=== PATIENT | female | born 1995 | race Caucasian/White ===

== ENCOUNTER 2016-11-11 21:13 | Emergency (ER) | payer OTHER ==
[2016-11-11 21:27] VITALS: TEMP 98.2
[2016-11-11] MEDS ORDERED: ACETAMINOPHEN 325 MG TAB PO ONE (21:58)
[2016-11-11 22:03] LABS: % IMMATURE GRANULYOCYTES 0.3 % (0.0-1.1); ABSOLUTE IMMATURE GRANULOCYTES 0.03 10^3/uL (0.00-0.10); ADD DIFF? NO; ADD MORPH? NO; ADD SCAN? NO; ATYPICAL LYMPHOCYTE FLAG 0 (0-99); FRAGMENT RBC FLAG 0 (0-99); HEMATOCRIT 43.5 % (38.0-47.0); HEMOGLOBIN 15.2 g/dL (12.6-16.3); LEFT SHIFT FLG 0 (0-99); LIPEMIA HEMOLYSIS FLAG 90 (0-99); MEAN CELL HEMOGLOBIN 30.1 pg (27.9-34.1); MEAN CELL HEMOGLOBIN CONCENTR. 34.9 g/dL (32.4-36.7); MEAN CELL VOLUME 86.1 fL (81.5-99.8); MEAN PLATELET VOLUME 10.8 fL (8.7-11.7); PLATELET CLUMPS FLAG 0 (0-99); PLATELET COUNT 375 10^3/uL (150-400); RED BLOOD CELL COUNT 5.05 10^6/uL (4.18-5.33); RED CELL DISTRIBUTION WIDTH 12.2 % (11.5-15.2)
[2016-11-11 22:22] LABS: ANION GAP 16 mEq/L (8-16); CARBON DIOXIDE 21 mEq/l (22-31); CHLORIDE 103 mEq/L (97-110); CREATININE 0.7 mg/dL (0.6-1.0); GLUCOSE 97 mg/dL (70-100); POTASSIUM 3.9 mEq/L (3.5-5.2); SODIUM 140 mEq/L (134-144)
[2016-11-11 22:23] LABS: CALCIUM 9.8 mg/dL (8.5-10.4); GLOMERULAR FILTRATION RATE > 60
--- NOTE | 2016-11-11 22:50 | EDPHY ---
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 She was here with friends who witnessed this occurrence. Reportedly she was standing in the kitchen, stated that she was going to go down, fell to the floor, was unresponsive for less than a minute, then "shook" and coughed once and awakened. She did not seem confused upon awakening. The shaking sounds like more of a tremor. There was no dramatic limb movement. The patient states that she had seizures for years but had been seizure free for the past 4 years. She describes her seizures as being preceded by a headache and manifesting as falling to the floor and coughing. She was never on prescription seizure medication. She reports having multiple evaluations including imaging. At the time of my evaluation today she states that she feels fine. She denies headache, has not had recent fever or illness, denies numbness or weakness. REVIEW OF SYSTEMS: A ten point review of systems was performed and is negative with the exception of the items mentioned in the HPI. Past medical history: Possible seizure history as above Social history: She is a student at the [employer], [place]. She also works at [employer]. General Appearance: Alert. Vital signs reviewed. Blood pressure 136/90, heart rate 112 at triage. Eyes: Pupils equal and round, no conjunctival injection, no discharge. Anicteric. ENT, Mouth: Mucous membranes are moist, no oropharyngeal erythema or edema. Neck: No lymphadenopathy, supple. Respiratory: Lungs are clear to auscultation; no wheezes, rales, or rhonchi. Cardiovascular: Regular rate and rhythm; no murmur, rub, or gallop. Gastrointestinal: Abdomen is soft and nontender, no masses or organomegaly, bowel sounds normal. Skin: Warm and dry, no rashes on exposed skin, normal color. Back: Nontender to palpation over the thoracolumbar spine. No CVAT. Extremities: No lower extremity edema, no calf tenderness or swelling. Neurological: Alert and oriented. Moving all four extremities easily and equally. Cranial nerves II through XII are examined and are intact (visual acuity not tested). Strength is 5 over 5 bilaterally with testing of all major motor groups. Sensation is intact to light touch over all 4 extremities. Deep tendon reflexes are 2+ in the biceps and knees bilaterally. Gait is normal. [id number] is performed accurately. Psychiatric: Normal affect. - Personal History LMP (Females 10-55): Now Current Tetanus/Diphtheria Vaccine: Unsure Current Tetanus Diphtheria and Acellular Pertussis (TDAP): Unsure - Medical/Surgical History Hx Asthma: Yes Hx Chronic Respiratory Disease: No Hx Diabetes: No Hx Cardiac Disease: No Hx Renal Disease: No Hx Cirrhosis: No Hx Alcoholism: No Hx HIV/AIDS: No Hx Splenectomy or Spleen Trauma: No Other PMH: None - Social History Smoking Status: Never smoked Constitutional: Initial Vital Signs Temperature (C) 36.8 C 11/11/16 21:23 Heart Rate 112 H 11/11/16 21:23 Respiratory Rate 17 11/11/16 21:23 Blood Pressure 136/90 H 11/11/16 21:23 O2 Sat (%) 94 11/11/16 21:23 O2 Delivery Mode Room Air Allergies/Adverse Reactions: Penicillins Allergy (Verified 11/11/16 21:33) Home Medications: Medication Instructions Recorded Albuterol 11/11/16 Symbicort 80-4.5 Mcg Inhaler 11/11/16 Medical Decision Making ED Course/Re-evaluation: The patient was observed in the emergency department with no further seizure activity. It is not clear to me whether the event rhett was actually a seizure. Based upon her description of her previous seizures and based upon the description provided by her friends rhett I have my doubts as to whether she has or had a seizure disorder. However, I do not have any way to know for sure. I am not recommending brain imaging at this point in time. Her neurologic exam is normal. She has no complaints whatsoever. I am advising follow up with Neurology. I have recommended that she not drive or engage in otherwise potentially dangerous activities. She understands that she should return to the emergency department if she has any further episodes. She was given Tylenol for headache. She had a mild headache while in the department. I do not suspect intracranial hemorrhage. She has not had any head trauma recently. She did not injure herself with the fall today. Lab work reviewed. She was hypertensive and tachycardic on arrival but her vital signs normalized and she was discharged with normal vital signs. Differential Diagnosis: Seizure including but not limited to electrolyte abnormality, alcohol withdrawal , medication noncompliance, head injury, and breakthrough seizure. - Data Points Laboratory Results: Laboratory Results 11/11/16 21:57 11/11/16 21:57 Medications Given: Discontinued Medications Acetaminophen (Tylenol) 650 mg PO EDNOW ONE Stop: 11/11/16 21:59 Last Admin: 11/11/16 22:02 Dose: 650 mg Departure - Departure Disposition: Home, Routine, Self-Care Clinical Impression: Seizure Condition: Good Instructions: Nonepileptic Seizures (ED) Additional Instructions: As we discussed, I am not certain exactly what these episodes are. They have features of both fainting and seizure activity. Since you have had them before and been thoroughly evaluated in the past I do not think that you need any additional evaluation tonight. However, I recommend that you follow up with a local neurologist. You should not drive until you are cleared to do so by either your neurologist or your primary care physician. I am referring you to a neurologist, Dr. Mackey. You should call his office on Sunday to schedule an appointment--there will likely be await before he can see you. You should avoid any activities that would be dangerous if you had a similar episode. Referrals: KOSTAS SOTO [Other] - As per Instructions Tip Mackey DO [Doctor of Osteopathy] - As per Instructions
[2016-11-11 23:29] VITALS: BP 117/76; PULSE 94; RESP 16; O2SAT 97
== END 2016-11-11 23:23 | disposition home or self-care (01) ==
DX: G40.909 Epilepsy, unspecified, not intractable, without status epilepticus (principal); J45.909 Unspecified asthma, uncomplicated